=== PATIENT | male | born 2000 | race Hispanic/Latino ===

== ENCOUNTER 2025-02-23 09:13 | Observation (INO) | payer OTHER ==
[~2025-02-23] VITALS: Ht 175.3 cm; Wt 68.0 kg
[2025-02-23] MEDS: ONDANSETRON HCL INJ 2MG/ML 2ML 2 MG/ML VIAL IV STA (10:08)
[2025-02-23] MEDS: SODIUM CHLORIDE 0.9% 1000ML 1,000 ML IV STA ×2 (10:08→10:15)
[2025-02-23 10:11] LABS: BASOPHILS % 0.3 % (0.0-1.0); EOSINOPHILS % 0.0 % (0.0-6.0); LYMPHOCYTES % 4.0 % (18.0-39.1); MONOCYTES % 5.0 % (4.4-11.3); NEUTROPHILS % 90.2 % (38.7-80.0); RED CELL DISTRIBUTION WIDTH 11.8 % (11.7-14.4)
[2025-02-23] MEDS: KETOROLAC TROMETHAMINE 30 MG/ML VIAL IV STA (10:16)
[2025-02-23] MEDS: Morphine 4mg INJECTION 4 MG/ML INJ IV STA (10:16)
[2025-02-23 10:36] LABS: INR 1.16
[2025-02-23 10:37] LABS: EST GLOMERULAR FILTRATION RATE 119 ML/MIN (>=60)
[2025-02-23 10:58] LABS: LYMPHOCYTES % (MANUAL) 1 % (19-48); MONOCYTES % (MANUAL) 1 % (3.4-9.0); NEUTROPHILS % (MANUAL) 97 % (40-74); PLATELET ESTIMATE ADEQUATE; PLATELET MORPHOLOGY COMMENT NORMAL; RBC MORPHOLOGY COMMENT NORMAL; REACTIVE LYMPHOCYTES 1
[2025-02-23 11:55] LABS: LEUKOCYTE ESTERASE ,URINE NEGATIVE (NEGATIVE); OPIATES SCREEN,URINE POSITIVE (NEGATIVE); PROTEIN,URINE DIPSTICK NEGATIVE (NEGATIVE)
[2025-02-23 11:56] LABS: AMPHETAMINES SCREEN,URINE NEGATIVE (NEGATIVE); CANNABINOIDS SCREEN,URINE POSITIVE (NEGATIVE); COCAINE SCREEN,URINE NEGATIVE (NEGATIVE); EPITHELIAL CELLS,URINE FEW /LPF; METHADONE SCREEN, URINE NEGATIVE (NEGATIVE); URINE UROBILINOGEN 0.2 mg/dL (0.2 - 1); WBC,URINE (MAN) 0-5 /HPF (0-5)
[2025-02-23] MEDS ORDERED: SODIUM CHLORIDE 0.9% 1000ML 1,000 ML IV SCH (13:00)
[2025-02-23] MEDS ORDERED: IOPAMIDOL 370 MG/ML 100 ML INFUS..BTL INJ ONE (14:00)
[2025-02-23] MEDS: SODIUM CHLORIDE 0.9% 1000ML 1,000 ML IV SCH (14:22)
[2025-02-23 14:30] VITALS: PULSE 56; RESP 14; TEMP 99.1
[2025-02-23] MEDS: ONDANSETRON HCL INJ 2MG/ML 2ML 2 MG/ML VIAL IV PRN (16:02)
[2025-02-23 18:25] VITALS: BP 119/51; PULSE 56; RESP 16; TEMP 97.8; O2SAT 97
[2025-02-23 18:52] VITALS: BP 138/77; PULSE 68; RESP 18; TEMP 97.9; O2SAT 96
[2025-02-23] MEDS ORDERED: KETOROLAC TROMETHAMINE 30 MG/ML VIAL IM PRN (19:00)
[2025-02-23 20:00] VITALS: BP 132/60; PULSE 62; RESP 16; TEMP 98.4; O2SAT 100
[2025-02-24] VITALS: BP 114/48; PULSE 72; RESP 16; TEMP 98.8; O2SAT 100
[2025-02-24 04:00] VITALS: BP 104/50; PULSE 62; RESP 16; TEMP 98.6; O2SAT 100
[2025-02-24 06:36] LABS: BASOPHILS % 0.2 % (0.0-1.0); EOSINOPHILS % 0.3 % (0.0-6.0); LYMPHOCYTES % 14.4 % (18.0-39.1); MONOCYTES % 7.0 % (4.4-11.3); NEUTROPHILS % 77.8 % (38.7-80.0); RED CELL DISTRIBUTION WIDTH 12.0 % (11.7-14.4)
[2025-02-24 06:42] LABS: EST GLOMERULAR FILTRATION RATE 122.0 ML/MIN (>=60)
[2025-02-24 08:00] VITALS: BP 127/58; PULSE 66; RESP 18; TEMP 98.2; O2SAT 100
[2025-02-24 12:26] VITALS: BP 125/70; PULSE 59; RESP 18; TEMP 98.4; O2SAT 100
== END 2025-02-24 13:44 | disposition home or self-care (01) ==
LOC: ER 09:50 → ERHOLD 12:53 → MED/SURG2 16:15
PROVIDERS: ADMIT Internal Medicine; ATTEND Internal Medicine
DX: K52.9 Noninfective gastroenteritis and colitis, unspecified (principal); D72.829 Elevated white blood cell count, unspecified; F12.90 Cannabis use, unspecified, uncomplicated
CPT/HCPCS: 36415 ×2; 74177; 80048; 80053; 80307; 81001; 83690; 83735; 84484; 85025 ×2; 85610; 85730; 99284; G0378 ×2; J1885; J2270; J2405; J2470 ×2; J2543 ×2; J7030 ×2; Q9967